=== PATIENT | female | born 1955 | race Caucasian/White ===

== ENCOUNTER 2019-11-06 13:20 | Emergency (ER) | payer OTHER ==
[~2019-11-06] VITALS: Ht 167.6 cm; Wt 104.3 kg
[2019-11-06] MEDS ORDERED: TOPROL XL50 M1 (13:51)
[2019-11-06] MEDS ORDERED: FERROCITE324 MG (13:51)
[2019-11-06] MEDS ORDERED: FOLIC ACID 1MG (13:52)
[2019-11-06] MEDS ORDERED: NORFLEX (13:52)
[2019-11-06] MEDS ORDERED: ANALPRAM HC 2.530 GM RECTAL (16:46)
== END 2019-11-06 17:11 | disposition home or self-care (01) ==
LOC: ER 13:20
DX: K60.0 Acute anal fissure (principal); K62.89 Other specified diseases of anus and rectum

== ENCOUNTER 2019-11-22 12:39 | Emergency (ER) | payer OTHER ==
[~2019-11-22] VITALS: Ht 170.2 cm; Wt 111.1 kg
[~2019-11-22 12:39] MED LIST: ANALPRAM HC 2.530 GM RECTAL; FERROCITE324 MG; FOLIC ACID 1MG; NORFLEX; TOPROL XL50 M1
== END 2019-11-22 15:33 | disposition home or self-care (01) ==
LOC: ER 12:39 → EDSEX 12:48 → ER 15:33
DX: K60.0 Acute anal fissure (principal)

== ENCOUNTER 2019-11-24 14:26 | Inpatient (IN) | payer OTHER ==
[~2019-11-24] VITALS: Ht 170.2 cm; Wt 104.3 kg
[2019-11-25] MEDS ORDERED: FOLIC ACID1 MG (07:56)
[2019-11-25] MEDS ORDERED: COLACE100 MG PO (11:52)
[2019-11-25] MEDS ORDERED: PERCOCET 5-3251 EACH PO (11:52)
[2019-11-25] MEDS ORDERED: DICLOFENAC POTA50 MG PO (11:52)
== END 2019-11-25 14:49 | disposition home or self-care (01) | DRG 393 ==
LOC: ER 14:26 → EDSEX 14:29 → ER 14:29 → SURG 17:14 → MEDJ 17:14
PROVIDERS: ADMIT Surgery; ATTEND Surgery
DX: K60.2 Anal fissure, unspecified (principal); U07.1 COVID-19; K62.5 Hemorrhage of anus and rectum; Z53.09 Procedure and treatment not carried out because of other contraindication

== ENCOUNTER 2020-03-19 05:55 | Day surgery (SDC) | payer OTHER ==
[~2020-03-19 05:55] MED LIST changes: +COLACE100 MG PO; +DICLOFENAC POTA50 MG PO; +FOLIC ACID1 MG; +PERCOCET 5-3251 EACH PO; +SIMVASTATIN10 MG PO
[2020-03-19] MEDS ORDERED: COLACE100 MG PO (12:00)
[2020-03-19] MEDS ORDERED: PERCOCET 5-3251 EACH PO (12:00)
== END 2020-03-19 18:35 | disposition home or self-care (01) ==
LOC: CIR.AMB 05:55
PROVIDERS: ATTEND Surgery
DX: K60.1 Chronic anal fissure (principal); Z20.828 Contact with and (suspected) exposure to other viral communicable diseases

== ENCOUNTER 2020-05-12 00:42 | Emergency (ER) | payer OTHER ==
[~2020-05-12] VITALS: Ht 170.2 cm; Wt 108.9 kg
[2020-05-12] MEDS ORDERED: FLONASE ALLERG9.9 ML NASAL (04:03)
[2020-05-12] MEDS ORDERED: MECLIZINE HCL25 MG PO (04:03)
== END 2020-05-12 04:12 | disposition home or self-care (01) ==
LOC: ER 00:42
DX: R42 Dizziness and giddiness (principal); R09.81 Nasal congestion